=== PATIENT | female | born 1970 | race Caucasian/White ===

== ENCOUNTER 2017-09-05 16:19 | Outpatient (CLI) | payer BC | END 2017-09-05 16:20 | disposition home or self-care (01) | LOC: BICMAMMO 16:19 | PROVIDERS: ATTEND Family Medicine | DX: Z12.31 Encounter for screening mammogram for malignant neoplasm of breast (principal) | CPT/HCPCS: 77063; 77067 ==

== ENCOUNTER 2023-04-17 08:13 | Outpatient (CLI) | payer BC | END 2023-04-17 08:14 | disposition home or self-care (01) | LOC: BICMAMMO 08:13 | PROVIDERS: ATTEND Physician Assistant | DX: N64.4 Mastodynia (principal); N60.11 Diffuse cystic mastopathy of right breast | CPT/HCPCS: 77066; G0279 ==